=== PATIENT | female | born 1960 | race Caucasian/White ===

== ENCOUNTER 2022-07-01 17:54 | Emergency (ER) | payer BC, OTHER ==
[~2022-07-01] VITALS: Ht 170.2 cm; Wt 97.5 kg
[~2022-07-01 17:54] MED LIST: ARMOUR THYROID60 MG PO
[2022-07-01] MEDS ORDERED: HYDRALAZINE HCL 20 MG/ML VIAL IV STA (18:20)
[2022-07-01 18:34] LABS: BASOPHILS # (AUTO) 0.1 (0.0-0.1); BASOPHILS % 0.9 % (0.0-1.0); EOSINOPHILS # (AUTO) 0.3 (0.0-0.4); EOSINOPHILS % 3.2 % (0.0-6.0); HEMATOCRIT 42.4 % (34.2-44.1); HEMOGLOBIN 13.4 g/dL (12.0-16.0); LYMPHOCYTES # (AUTO) 2.6 (1.0-3.2); MEAN CORPUSCULAR HEMOGLOBIN 31.2 pg (28-32); MEAN CORPUSCULAR HGB CONC 31.6 g/dL (31-35); MEAN CORPUSCULAR VOLUME 98.8 fL (81-99); MONOCYTES # (AUTO) 0.8 (0.2-0.8); MONOCYTES % 8.2 % (4.4-11.3); NEUTROPHILS % 61.4 % (38.7-80.0); PLATELET COUNT 304 x10e3/uL (140-360); RED BLOOD COUNT 4.29 x10e6/uL (3.6-5.1); RED CELL DISTRIBUTION WIDTH 13.3 % (11.7-14.4)
[2022-07-01 18:48] LABS: ALBUMIN 3.9 g/dL (3.5-5.0); ALBUMIN/GLOBULIN RATIO 1.1 (0.8-2.0); ANION GAP 12.6 mmol/L (8-16); CALCIUM 9.6 mg/dL (8.4-10.2); CREATININE, SERUM 0.69 mg/dL (0.57-1.11); POTASSIUM 4.6 mmol/L (3.5-5.1)
[2022-07-01] MEDS ORDERED: LISINOPRIL5 MG PO (20:24)
[2022-07-01 20:36] VITALS: BP 145/71
== END 2022-07-01 20:35 | disposition home or self-care (01) ==
LOC: ER 18:16
DX: I16.0 Hypertensive urgency (principal); I10 Essential (primary) hypertension; E03.9 Hypothyroidism, unspecified; Z98.84 Bariatric surgery status
CPT/HCPCS: 36415; 70450; 80053; 85025; 93005; 99284; J0360